=== PATIENT | female | born 1970 | race Caucasian/White ===

== ENCOUNTER 2023-06-02 15:44 | Outpatient (CLI) | payer MEDICAID, SELFPAY ==
[2023-06-02 15:50] LABS: Abs Immature Grans 0.03 10^3/uL (0.0-0.06); Absolute Basophil Count 0.03 10^3/uL (0.0-0.2); Absolute Eosinophil Count 0.04 10^3/uL (0.0-0.7); Absolute Lymphocyte Count 2.36 10^3/uL (1.2-3.4); Absolute Monocyte Count 0.55 10^3/uL (0.1-0.8); Absolute Neutrophil Count 3.11 10^3/uL (1.2-6.7); Basophils % 0.5; Eosinophils % 0.7; HGB 13.5 g/dL (11.2-15.7); Immature Grans % 0.5; Lymphocytes % 38.6; MCH 29.6 pg (27.0-33.0); MCHC 32.9 % (32.0-36.0); MCV 90 fL (80-95); MPV 10.7 fL (8.0-11.0); Neutrophils % 50.7; Platelet Count 182 10^3/uL (130-400); RBC 4.56 10^6/uL (3.93-5.22); RDW-SD 42.6 fL; WBC 6.12 10^3/uL (4.4-10.8)
[2023-06-02 17:13] LABS: Calculated LDL 106 mg/dL (<100); Cholesterol 201 mg/dL (<200); HDL Cholesterol 79 mg/dL (40-60); Triglyceride 84 mg/dL (<150)
[2023-06-02 22:59] LABS: Hepatitis C Ab w Rflx HCV PCR Negative (Negative)
[2023-06-02 23:02] LABS: HIV-1/2 Ag & Ab Screen Negative (Negative)
== END 2023-06-02 15:45 | disposition home or self-care (01) ==
LOC: LBO 15:46
PROVIDERS: PCP Family Medicine; Visit Provider Family Medicine
DX: N92.4 Excessive bleeding in the premenopausal period (principal); Z13.6 Encounter for screening for cardiovascular disorders; Z11.4 Encounter for screening for human immunodeficiency virus [HIV]; Z11.59 Encounter for screening for other viral diseases
CPT/HCPCS: 36415; 80061; 86803; 87389; 85025

== ENCOUNTER → 2023-06-10 01:42 | Outpatient (CLI) | payer MEDICAID, SELFPAY ==
--- NOTE | 2023-06-10 | DI.MAMMO_ITS ---
Exam(s) MAMMO SCREENING EXAM: MAMMO SCREENING CLINICAL HISTORY: screening, Z12.39. TECHNIQUE: Bilateral full field digital CC and MLO mammographic images were obtained with 3D tomosyn thesis and utilizing computer aided detection (CAD). COMPARISON: Prior outside mammograms were reviewed. FINDINGS: There has been no significant change in the appearance and distribution of the fibroglandular tissue. There are no new spiculated masses nor malignant appearing microcalcification groups. There is no significant architectural distortion nor skin thickening-retraction. IMPRESSION: No radiographic evidence of malignancy. BI-RADS Category 1 - Negative Breast Density - Category B - Scattered areas of fibroglandular density Breast density Category C or D implies that the patient has dense breast tissue. Dense breast tissue can make it harder to find cancer on a mammogram. Dense breast tissue is also associated with an incr eased risk of breast cancer. This information about the result of the mammogram report was provided to the patient to raise their awareness. Use this report when you speak with the patient about their risks for breast cancer, which includes their family history. At that time, you may recommend additional screening tests (Ultrasoun d or MRI) as these tests may add significant information. A negative radiographic report should not delay biopsy if a dominant or clinically suspicious mass is present. Up to ten percent of cancers are not identified on mammography. A negative report may reinforce clinical impression. Adenosis and dense breasts may obscure an underlying neoplasm. False positive reports average 6 to 10%. Patient will receive a letter notifying them of these results.
== END ==
PROVIDERS: PCP Family Medicine; Visit Provider Family Medicine
DX: Z12.31 Encounter for screening mammogram for malignant neoplasm of breast (principal)
CPT/HCPCS: 77063; 77067

== ENCOUNTER 2023-07-19 11:37 | Outpatient (REF) | payer MEDICAID, SELFPAY ==
--- NOTE | 2023-07-19 11:07 | ENDOMET_PTH ---
PATIENT: Lisa Pandya LOC: [facility] U#:[id number] AGE/SX: 52/F ROOM: RE07/19/[address]: Marquita Koch MD : 1970 BED: DIS: 07/19/2023 SPEC #: [id number] RECD: 07/19/23 13:11 STATUS: GORDON REJere #: [id number] SCOTT: 07/19/23 11:[address]: Marquita Koch DEPT: Surgical Specimen RECD BY: Chel Desai ENTERED: 07/19/23 13:12 SP TYPE: Endomet OTHR DR: Lisa Watkins Tissues: 1 - ENDOMETRIUM BX/KATE Procedures: GROSS AND MICRO LEVEL 4 Comments: [id number]
== END 2023-07-19 11:38 | disposition home or self-care (01) ==
LOC: LBN 11:37
PROVIDERS: PCP Family Medicine; Visit Provider Obstetrics & Gynecology
DX: N92.4 Excessive bleeding in the premenopausal period (principal); N84.0 Polyp of corpus uteri
CPT/HCPCS: 88305